=== PATIENT | female | born 1965 | race Caucasian/White ===

== ENCOUNTER 2025-02-16 23:49 | Emergency (ER) | payer OTHER ==
[2025-02-17 00:39] LABS: APPEARANCE,URINE CLOUDY (CLEAR); GLUCOSE,URINE NEGATIVE (NEGATIVE); OCCULT BLOOD,URINE LARGE (NEGATIVE)
[2025-02-17 01:26] VITALS: BP 126/70; PULSE 72
== END 2025-02-17 00:58 | disposition home or self-care (01) ==
LOC: LB.ED 23:49
DX: N39.0 Urinary tract infection, site not specified (principal); R31.9 Hematuria, unspecified; Z79.899 Other long term (current) drug therapy
CPT/HCPCS: 81001; 99283; A9270-GY